=== PATIENT | male | born 1960 | race Caucasian/White ===

== ENCOUNTER → 2022-03-19 | Emergency (ER) | payer OTHER ==
[~2022-03-19] VITALS: Ht 172.7 cm; Wt 85.0 kg
[~2022-03-19] MED LIST: IBUPROFEN 200 MG TABLET. PO ONE
[2022-03-19 23:10] VITALS: BP 145/81
--- NOTE | 2022-03-20 09:31 | RAD ---
EXAMINATION: CT ABDOMEN+PELVIS WO CLINICAL HISTORY: Abdominal pain. TECHNIQUE: Imaging of the abdomen and pelvis was performed without intravenous contrast using standar d technique, scanning from just above the dome of the diaphragm to the symphysis pubis. Unenhanced i maging is limited for the evaluation of some intra-abdominal and pelvic pathology. CT Dose Reduction Employed: One or more of the following individualized dose reduction techniques wer e utilized for this examination: 1. Automated exposure control 2. Adjustment of the mA and/or kV ac cording to patient size 3. Use of iterative reconstruction technique. COMPARISON: None FINDINGS: Minimal dependent bibasilar subsegmental atelectasis. Punctate splenic calcifications, likely related to old granulomatous disease. Liver, gallbladder, gutierrez creas, and adrenal glands unremarkable. Small hypodense cortical foci in the bilateral kidneys, incompletely evaluated but favor cysts. Minimally filled urinary bladder suboptimally evaluated. Diffusely prominent bladder wall likely rela patrick to underdistention but cannot exclude superimposed cystitis. Punctate prostatic calcifications. No dilated bowel. Appendix within normal limits. Hfge-ly-[id number] arterial atherosclerotic calcification without aneurysm. Multilevel thoracolumbar degenerative changes with grade 1 L4-5 anterolisthesis. IMPRESSION: No evidence of acute abdominopelvic abnormality. Electronically signed by: Danny Kinsey DO (03/20/2022 9:28 AM) TAMAR
== END | disposition home or self-care (01) ==
LOC: ER 23:02
DX: R10.9 Unspecified abdominal pain (principal); M54.59 Other low back pain; W11.XXXA Fall on and from ladder, initial encounter; Y93.89 Activity, other specified; Y92.89 Other specified places as the place of occurrence of the external cause; Y99.8 Other external cause status
CPT/HCPCS: 74176; 99284